=== PATIENT | female | born 1980 | race Caucasian/White ===

== ENCOUNTER 2017-09-14 13:56 | Emergency (ER) | payer MEDICAID ==
[2017-09-14 14:06] VITALS: BP 127/65
[2017-09-14] MEDS ORDERED: KETOROLAC TROMETHAMINE INJ/PF 30 MG/1 ML SDV IM ONE (14:32)
--- NOTE | 2017-09-14 14:39 | ER Document Report ---
ED Extremity Problem, Lower - General Chief Complaint: Leg Pain Stated Complaint: RIGHT LEG PAIN Time Seen by Provider: 09/14/17 14:15 Mode of Arrival: Ambulatory Information source: Patient TRAVEL OUTSIDE OF THE [place] IN LAST 30 DAYS: No - HPI Patient complains to provider of: Pain Location: Leg Occurred: Yesterday Notes: Patient is here with complaints of right leg pain. She states the pain started yesterday afternoon. She denies any fall, trauma, injury. She does report that she was pulling trash cans and weeds the day before and is not sure if she injured something doing that. She denies any blood thinning medications. She denies any fever. No abdominal pain. No nausea, vomiting, diarrhea. No dysuria hematuria. No rash. Pain is worse when she completely straightens out her leg or when she walks. Nothing seems to make it feel better. She denies any recent long trips or surgeries, leg swelling, cancer, hormone use, history of DVT or PE. She denies any numbness, tingling, weakness. She denies any bowel or bladder dysfunction. No chest pain or shortness of breath. She has no other complaints at this time. - Related Data Allergies/Adverse Reactions: Soap [From Betadine] Allergy (Severe, Verified 09/14/17 13:57) rash,hives povidone-iodine [From Betadine] Allergy (Verified 09/14/17 13:57) diphenhydramine HCl [From Benadryl] Adverse Reaction (Verified 09/14/17 13:57) EXTREME DROWSINESS Past Medical History - Social History Smoking Status: Current Every Day Smoker Chew tobacco use (# tins/day): No Frequency of alcohol use: None Drug Abuse: None Family History: Reviewed & Not Pertinent Patient has suicidal ideation: No Patient has homicidal ideation: No - Past Medical History Cardiac Medical History: Denies: Hx Heart Attack, Hx Hypertension, Hx Pulmonary Embolism Pulmonary Medical History: Reports: Hx Asthma - no recent attacks Denies: Hx Bronchitis, Hx COPD, Hx Pneumonia, Hx Respiratory Failure, Hx Sleep Apnea, Hx Tuberculosis Neurological Medical History: Denies: Hx Cerebrovascular Accident, Hx Seizures Renal/ Medical History: Denies: Hx Ovarian Cysts, Hx Peritoneal Dialysis, Hx Pelvic Inflammatory Disease Malignancy Medical History: Denies: Hx Breast Cancer, Hx Cervical Cancer, Hx Lung Cancer, Hx Ovarian Cancer GI Medical History: Reports: Hx Gastroesophageal Reflux Disease. Denies: Hx Crohn's Disease, Hx Hepatitis, Hx Hiatal Hernia, Hx Irritable Bowel, Hx Liver Failure, Hx Pancreatitis, Hx Ulcer Psychiatric Medical History: Reports: Hx Anxiety, Hx Bipolar Disorder, Hx Depression Denies: Hx Post Traumatic Stress Disorder, Hx Schizophrenia Traumatic Medical History: Denies: Hx Fractures, Hx Spine Fracture Infectious Medical History: Denies: Hx C-Diff, Hx Hepatitis, Hx HIV, Hx MRSA, Hx VRE Past Surgical History: Reports: Hx Appendectomy, Hx Tonsillectomy, Hx Tubal Ligation. Denies: Hx Bowel Surgery, Hx Section, Hx Cholecystectomy, Hx Colostomy, Hx Coronary Artery Bypass Graft, Hx Gastric Bypass Surgery, Hx Herniorrhaphy, Hx Hysterectomy, Hx Mastectomy, Hx Open Heart Surgery, Hx Pacemaker - Immunizations Immunizations up to date: Yes Hx Diphtheria, Pertussis, Tetanus Vaccination: Yes Review of Systems - Review of Systems -: Yes All other systems reviewed and negative Physical Exam - Vital signs Vitals: Temp Pulse Resp BP Pulse Ox 98.8 F 82 20 127/65 H 99 09/14/17 14:03 09/14/17 14:03 09/14/17 14:03 09/14/17 14:03 09/14/17 14:03 - Notes Notes: GENERAL: alert, cooperative, nontoxic, no distress. HEAD: normocephalic, atraumatic EYES: conjunctiva pink without discharge, no external redness or swelling. EARS: no external swelling, no external redness NOSE: atraumatic, no external swelling MOUTH/THROAT: mucous membranes moist and pink, posterior pharynx without erythema, swelling, exudate. No trismus or drooling. NECK: soft, supple, full range of motion, no meningismus. CHEST: no distress, lungs clear and equal throughout. No wheezing, rales, rhonchi. CARDIAC: regular rate and rhythm, no murmur, normal capillary refill, normal pulses. No peripheral edema noted. ABDOMEN: soft, nontender, no pusatile mass. BACK: No CVA tenderness. Tenderness to the right gluteus clayton as well as sciatic notch. Full range of motion of the back. No rash. EXTREMITIES: full range of motion of all extremities. No redness, no swelling. NEURO: alert and oriented A&O x 3, no focal deficits, full range of motion of all extremities. 5 out of 5 flexion and extension of the lower extremities bilaterally. Patellar and Achilles deep tendon reflexes are +2 bilaterally. Normal sensation with no saddle anesthesia. Patient can dorsiflex the great toes bilaterally. PYSCH: appropriate mood, affect. Patient is cooperative. SKIN: pink, warm, dry, no rash. Course - Re-evaluation Re-evalutation: 09/14/17 14:36 Patient is nontoxic-appearing with stable vitals. She is here with complaints of right buttock and right leg pain. There was no trauma or injury. There is no numbness or tingling. She is on no blood thinning medications. She has no risk or signs of cauda equina, epidural abscess/bleed, discitis, osteomyelitis, pyelonephritis, AAA. Patient has no DVT risk factors. She has no leg redness, swelling. She has normal pulse and sensation. Reflexes and neurological exam are unremarkable. Patient most likely is experiencing some sciatica. With lack of trauma, no imaging is needed at this time. At this point the patient will be given a shot of Toradol will be discharged home with Voltaren and instructions to follow-up if she is not improving in the next week. She should follow-up sooner for worsening pain, fever, numbness, tingling, weakness, bowel or bladder dysfunction, chest pain, shortness of breath, abdominal pain, or for any further concerns. The patient is noted to have elevated blood pressure during today's emergency department visit. The patient was informed of this finding. The patient was instructed that this may be related to pre-hypertension and requires further evaluation with a primary care provider. The patient has no hypertensive symptoms at this time. The patient's emergency department workup and current diagnosis were explained to the patient and or family. Follow-up instructions were provided. Medications if prescribed were discussed. Instructions for when to return to the emergency department including specific worrisome symptoms were discussed with the patient and/or family. - Vital Signs Vital signs: Temp Pulse Resp BP Pulse Ox 98.8 F 82 20 127/65 H 99 09/14/17 14:03 09/14/17 14:03 09/14/17 14:03 09/14/17 14:03 09/14/17 14:03 Discharge - Discharge Clinical Impression: Sciatica Qualifiers: Laterality: right Qualified Code(s): M54.31 - Sciatica, right side Condition: Stable Disposition: HOME, SELF-CARE Instructions: Sciatica ([facility]), Family Physicians / Practices Additional Instructions: Take medication as prescribed. Stretch. Follow-up with your doctor if not better in 1 week, sooner for worsening pain, fever, abdominal pain, nausea, vomiting, diarrhea, numbness, tingling, weakness, bowel or bladder dysfunction, swelling of the leg, or for any further concerns. Your blood pressure was elevated during today's visit. Have this rechecked with your doctor. Prescriptions: Diclofenac Sodium [Voltaren 50 Mg Tablet.] 50 mg PO BID #20 tablet.dr Forms: Elevated Blood Pressure, Smoking Cessation Education Referrals: ALVA DALTON MD [Primary Care Provider] - Follow up as needed
== END 2017-09-14 14:44 | disposition home or self-care (01) ==
LOC: ER 13:56
DX: M54.31 Sciatica, right side (principal); R03.0 Elevated blood-pressure reading, without diagnosis of hypertension; F17.200 Nicotine dependence, unspecified, uncomplicated; Z88.3 Allergy status to other anti-infective agents
CPT/HCPCS: 99283; 96372; J1885

== ENCOUNTER 2018-06-06 15:38 | Emergency (ER) | payer MEDICAID ==
[2018-06-06] MEDS ORDERED: CEPHALEXIN 500 MG CAPSULE PO ONE (16:44)
[2018-06-06] MEDS ORDERED: OXYCODONE-ACETAMINOPHEN 5-325 MG TABLET PO ONE (16:44)
[2018-06-06] MEDS ORDERED: SULFAMETHOXAZOLE/TRIMETHOPRIM 800-160 MG TABLET PO ONE (16:44)
[2018-06-06] MEDS ORDERED: BUPIVACAINE HCL 0.25% /EPINEPHRINE INJ/PF 30 ML SDV INJ ONE (16:45)
[2018-06-06] MEDS ORDERED: LIDOCAINE 1% INJ (10 MG/ML) 10 ML MDV INJ ONE (16:45)
--- NOTE | 2018-06-06 16:47 | ER Document Report ---
ED Medical Screen (RME) - General Chief Complaint: Toe Injury Stated Complaint: TOE PAIN Time Seen by Provider: 06/06/18 16:28 Primary Care Provider: AMINAH ESPINAL MD [Primary Care Provider] - Follow up as needed Notes: Patient is a 38-year-old female that presents to the emergency department for chief complaint of left great toe pain. Patient had a left great toenail removed approximately 2 and half weeks ago, and over the past 2 days, she noticed some green discharge and redness, and severe pain to the point that she decided come to the emergency department, she did see a strategic account director for this initially, but they are out of the office and not able to be seen today.. ROS: Other than noted above, the 12 point review of systems was reviewed with the patient and were negative, all pertinent findings are included in the HPI. PHYSICAL EXAMINATION: Vital signs reviewed. GENERAL: Obese female, appears uncomfortable on exam HEAD: Atraumatic, normocephalic. EYES: Pupils equal round extraocular movements intact, conjunctiva are normal. ENT: Nares patent NECK: Normal range of motion CV: Heart regular rate and rhythm LUNGS: No respiratory distress Musculoskeletal: Left great toe, has purulent discharge over the nailbed, tenderness to palpate, mild erythema noted NEUROLOGICAL: Normal speech PSYCH: Normal mood, normal affect. MDM: Patient seen and examined for rapid initial assessment. Vital signs reviewed. A comprehensive ED assessment and evaluation of the patient, analysis of test results and completion of the medical decision making process will be conducted by additional ED providers. *Note is created using voice recognition software and may contain spelling, syntax or grammatical errors. TRAVEL OUTSIDE OF THE [place] IN LAST 30 DAYS: No - Related Data Allergies/Adverse Reactions: Soap [From Betadine] Allergy (Severe, Verified 06/06/18 15:42) rash,hives povidone-iodine [From Betadine] Allergy (Verified 06/06/18 15:42) diphenhydramine HCl [From Benadryl] Adverse Reaction (Verified 06/06/18 15:42) EXTREME DROWSINESS Past Medical History - Social History Chew tobacco use (# tins/day): No Frequency of alcohol use: None Drug Abuse: None - Past Medical History Cardiac Medical History: Denies: Hx Heart Attack, Hx Hypertension, Hx Pulmonary Embolism Pulmonary Medical History: Reports: Hx Asthma - no recent attacks Denies: Hx Bronchitis, Hx COPD, Hx Pneumonia, Hx Respiratory Failure, Hx Sleep Apnea, Hx Tuberculosis Neurological Medical History: Denies: Hx Cerebrovascular Accident, Hx Seizures Renal/ Medical History: Reports: Hx Peritoneal Dialysis. Denies: Hx Ovarian Cysts, Hx Pelvic Inflammatory Disease Malignancy Medical History: Denies: Hx Breast Cancer, Hx Cervical Cancer, Hx Lung Cancer, Hx Ovarian Cancer GI Medical History: Reports: Hx Gastroesophageal Reflux Disease. Denies: Hx Crohn's Disease, Hx Hepatitis, Hx Hiatal Hernia, Hx Irritable Bowel, Hx Liver Failure, Hx Pancreatitis, Hx Ulcer Psychiatric Medical History: Reports: Hx Anxiety, Hx Bipolar Disorder, Hx Dep ression Denies: Hx Post Traumatic Stress Disorder, Hx Schizophrenia Traumatic Medical History: Denies: Hx Fractures, Hx Spine Fracture Infectious Medical History: Denies: Hx C-Diff, Hx Hepatitis, Hx HIV, Hx MRSA, Hx VRE Past Surgical History: Reports: Hx Appendectomy, Hx Tonsillectomy, Hx Tubal Ligation. Denies: Hx Bowel Surgery, Hx Section, Hx Cholecystectomy, Hx Colostomy, Hx Coronary Artery Bypass Graft, Hx Gastric Bypass Surgery, Hx Herniorrhaphy, Hx Hysterectomy, Hx Mastectomy, Hx Open Heart Surgery, Hx Pacemaker - Immunizations Immunizations up to date: Yes Hx Diphtheria, Pertussis, Tetanus Vaccination: Yes Physical Exam - Vital signs Vitals: Temp Pulse Resp BP Pulse Ox 99.0 F 96 18 144/90 H 98 06/06/18 15:43 06/06/18 15:43 06/06/18 15:43 06/06/18 15:43 06/06/18 15:43 Course - Vital Signs Vital signs: Temp Pulse Resp BP Pulse Ox 99.0 F 96 18 144/90 H 98 06/06/18 15:43 06/06/18 15:43 06/06/18 15:43 06/06/18 15:43 06/06/18 15:43 Doctor's Discharge - Discharge Referrals: AMINAH ESPINAL MD [Primary Care Provider] - Follow up as needed
--- NOTE | 2018-06-06 18:11 | RADIOLOGY REPORT (SQ) ---
EXAM DESCRIPTION: TOE LEFT COMPLETED DATE/TIME: 06/06/2018 5:17 pm REASON FOR STUDY: left great toe pain, infection COMPARISON: None. NUMBER OF VIEWS: Three views. TECHNIQUE: AP, lateral, and oblique images acquired of the left first toe. LIMITATIONS: None. FINDINGS: MINERALIZATION: Normal. BONES: No acute fracture or dislocation. Prior bunionectomy. JOINTS: No effusions. SOFT TISSUES: No soft tissue swelling. No foreign body. OTHER: No other significant finding. IMPRESSION: NEGATIVE STUDY OF THE LEFT TOE. NO RADIOGRAPHIC EVIDENCE OF ACUTE INJURY. COMMENT: SITE OF TRAUMA/COMPLAINT MARKED/STAMP COMPLETED: No TECHNICAL DOCUMENTATION: JOB ID: [id number] [employer]- All Rights Reserved Reading location - IP/workstation name: [email or web address]
--- NOTE | 2018-06-06 18:47 | ER Document Report ---
HPI - HPI Patient complains to provider of: Infected toe Time Seen by Provider: 06/06/18 16:28 Onset: Other - 2 days Onset/Duration: Worse Quality of pain: Achy Pain Level: 5 Context: Patient states she had her left great toenail removed 2-1/2 weeks ago due to problems with recurrent infections. Patient states she developed increased pain swelling and drainage to the toe of the past 2 days. Patient denies any fever. Patient states she was supposed to see the network internship today but they had to reschedule her appointment. Associated Symptoms: Other - Left great toe pain. denies: Fever Exacerbated by: Movement, Walking Relieved by: Denies Similar symptoms previously: Yes Recently seen / treated by doctor: Yes - ROS ROS below otherwise negative: Yes Systems Reviewed and Negative: Yes All other systems reviewed and negative - CONSTITUTIONAL Constitutional: REPORTS: Chills. DENIES: Fever - REPRODUCTIVE Reproductive: DENIES: : - MUSCULOSKELETAL Musculoskeletal: REPORTS: Extremity pain, Swelling - DERM Skin Color: Normal, [place] Past Medical History - General Information source: Patient - Social History Smoking Status: Current Every Day Smoker Chew tobacco use (# tins/day): No Smoking Education Provided: Yes Frequency of alcohol use: None Drug Abuse: None Occupation: None Lives with: Family Family History: Reviewed & Not Pertinent Patient has suicidal ideation: No Patient has homicidal ideation: No Pulmonary Medical History: Reports: Hx Asthma - no recent attacks Renal/ Medical History: Reports: Hx Peritoneal Dialysis GI Medical History: Reports: Hx Gastroesophageal Reflux Disease Psychiatric Medical History: Reports: Hx Anxiety, Hx Bipolar Disorder, Hx Depression Past Surgical History: Reports: Hx Appendectomy, Hx Tonsillectomy, Hx Tubal Ligation - Immunizations Immunizations up to date: Yes Hx Diphtheria, Pertussis, Tetanus Vaccination: Yes Vertical Provider Document - CONSTITUTIONAL Agree With Documented VS: Yes Exam Limitations: No Limitations General Appearance: WD/WN, No Apparent Distress - INFECTION CONTROL TRAVEL OUTSIDE OF THE [place] IN LAST 30 DAYS: No - HEENT HEENT: Atraumatic, Normocephalic - NECK Neck: Normal Inspection - RESPIRATORY Respiratory: Breath Sounds Normal, No Respiratory Distress - CARDIOVASCULAR Cardiovascular: Regular Rate, Regular Rhythm Pulses: Normal: Dorsalis pedis - MUSCULOSKELETAL/EXTREMETIES Musculoskeletal/Extremeties: MAEW - NEURO Level of Consciousness: Awake, Alert, Appropriate Motor/Sensory: No Motor Deficit - DERM Integumentary: Warm, Dry Notes: Patient with yellow-green drainage to nail bed of left great toe, mild erythema noted around nail bed, no significant swelling appreciated. Course - Re-evaluation Re-evalutation: 06/06/18 18:47 Offered patient digital block that was ordered from triage, patient declined stating that as long as she can be given something to go home with she can do without the block at this time. - Vital Signs Vital signs: Temp Pulse Resp BP Pulse Ox 99.0 F 96 18 144/90 H 98 06/06/18 15:43 06/06/18 15:43 06/06/18 15:43 06/06/18 15:43 06/06/18 15:43 Discharge - Discharge Clinical Impression: Impetigo, Paronychia of toe of left foot Condition: Stable Disposition: HOME, SELF-CARE Instructions: Bactroban Ointment ([facility]), Cephalexin ([facility]), Impetigo ([facility]), Paronychia ([facility]), Trimethoprim-Sulfa ([facility]) Additional Instructions: Return immediately for any new or worsening symptoms Followup with your primary care provider, call tomorrow to make a followup appointment Keep wound covered as it continues to heal, dressed nail bed with Bactroban ointment and then use a nonadherent dressing Do not take the Percocet if you take your Xanax, only take one medication of the other to avoid any adverse interaction between the 2 medications Prescriptions: Cephalexin Monohydrate [Keflex 500 mg Capsule] 500 mg PO Q6H 5 Days capsule Oxycodone HCl/Acetaminophen [Percocet 5-325 mg Tablet] 1 tab PO ASDIR PRN #8 tablet PRN Reason: Sulfamethoxazole/Trimethoprim [Bactrim Ds Tablet] 1 each PO BID #20 tablet Forms: Smoking Cessation Education Referrals: AMINAH ESPINAL MD [Primary Care Provider] - Follow up as needed
[2018-06-06] MEDS ORDERED: MUPIROCIN CALCIUM 2% CREAM 15 GM TP ONE (19:08)
[2018-06-06 19:40] VITALS: BP 140/83
== END 2018-06-06 19:36 | disposition home or self-care (01) ==
LOC: ER 15:38
DX: L01.00 Impetigo, unspecified (principal); L03.042 Acute lymphangitis of left toe; F17.200 Nicotine dependence, unspecified, uncomplicated; Z98.51 Tubal ligation status
CPT/HCPCS: 99283; 87070; 87205; 73660; J3490 ×2

== ENCOUNTER 2018-08-19 14:10 | Emergency (ER) | payer MEDICAID ==
--- NOTE | 2018-08-19 15:43 | ER Document Report ---
ED Medical Screen (RME) - General Chief Complaint: Abdominal Pain Stated Complaint: ABDOMINAL PAIN Time Seen by Provider: 08/19/18 15:39 Primary Care Provider: AMINAH ESPINAL MD [Primary Care Provider] - Follow up as needed Mode of Arrival: Ambulatory Information source: Patient Notes: 38-year-old female presented to ED for right lower abdominal pain since 2 AM. She states she has had her appendix out many years ago. She states she is also had a hysterectomy and has one ovary left. She states she is not sure which ovary but all of her pain is actually in the right pelvic area. She has severe pain to palpation in the right pelvic area. Abdomen soft non-tender except in the right pelvic area bowel sounds are hyperactive. She states she is not having any change in bowel or bladder. She states she is having bowel movements and urinating with no difficulty. She states she went to the [facility] and they sent her to the ED because they could not do any kind of imaging. She states she does smoke half pack a day does not drink or do drugs or work. She lives with her family I have greeted and performed a rapid initial assessment of this patient. A comprehensive ED assessment and evaluation of the patient, analysis of test results and completion of medical decision making process will be conducted by an additional ED providers. TRAVEL OUTSIDE OF THE [place] IN LAST 30 DAYS: No - Related Data Allergies/Adverse Reactions: Soap [From Betadine] Allergy (Severe, Verified 06/06/18 15:42) rash,hives povidone-iodine [From Betadine] Allergy (Verified 06/06/18 15:42) diphenhydramine HCl [From Benadryl] Adverse Reaction (Verified 06/06/18 15:42) EXTREME DROWSINESS Past Medical History - Past Medical History Cardiac Medical History: Denies: Hx Heart Attack, Hx Hypertension, Hx Pulmonary Embolism Pulmonary Medical History: Reports: Hx Asthma - no recent attacks Denies: Hx Bronchitis, Hx COPD, Hx Pneumonia, Hx Respiratory Failure, Hx Sleep Apnea, Hx Tuberculosis Neurological Medical History: Denies: Hx Cerebrovascular Accident, Hx Seizures Renal/ Medical History: Denies: Hx Ovarian Cysts, Hx Peritoneal Dialysis, Hx Pelvic Inflammatory Disease Malignancy Medical History: Denies: Hx Breast Cancer, Hx Cervical Cancer, Hx Lung Cancer, Hx Ovarian Cancer GI Medical History: Reports: Hx Gastroesophageal Reflux Disease. Denies: Hx Crohn's Disease, Hx Hepatitis, Hx Hiatal Hernia, Hx Irritable Bowel, Hx Liver Failure, Hx Pancreatitis, Hx Ulcer Psychiatric Medical History: Reports: Hx Anxiety, Hx Bipolar Disorder, Hx Depression Denies: Hx Post Traumatic Stress Disorder, Hx Schizophrenia Traumatic Medical History: Denies: Hx Fractures, Hx Spine Fracture Infectious Medical History: Denies: Hx C-Diff, Hx Hepatitis, Hx HIV, Hx MRSA, Hx VRE Past Surgical History: Reports: Hx Appendectomy, Hx Hysterectomy, Hx Orthopedic Surgery, Hx Tonsillectomy, Hx Tubal Ligation. Denies: Hx Bowel Surgery, Hx Section, Hx Cholecystectomy, Hx Colostomy, Hx Coronary Artery Bypass Graft, Hx Gastric Bypass Surgery, Hx Herniorrhaphy, Hx Mastectomy, Hx Open Heart Surgery, Hx Pacemaker - Immunizations Immunizations up to date: Yes Hx Diphtheria, Pertussis, Tetanus Vaccination: Yes Physical Exam - Vital signs Vitals: Temp Pulse Resp BP Pulse Ox 98.2 F 89 14 132/73 H 97 08/19/18 15:09 08/19/18 15:09 08/19/18 15:09 08/19/18 15:09 08/19/18 15:09 Course - Vital Signs Vital signs: Temp Pulse Resp BP Pulse Ox 98.2 F 89 14 132/73 H 97 08/19/18 15:09 08/19/18 15:09 08/19/18 15:09 08/19/18 15:09 08/19/18 15:09 Doctor's Discharge - Discharge Referrals: AMINAH ESPINAL MD [Primary Care Provider] - Follow up as needed
[2018-08-19 16:27] LABS: APPEARANCE,URINE SLIGHTLY-CLOUDY; BILIRUBIN,URINE NEGATIVE (NEGATIVE); COLOR,URINE YELLOW; GLUCOSE, URINE NEGATIVE (NEGATIVE); KETONES,URINE NEGATIVE (NEGATIVE); LEUKOCYTE ESTERASE,URINE LARGE (NEGATIVE); NITRITE,URINE NEGATIVE (NEGATIVE); PROTEIN,URINE NEGATIVE (NEGATIVE); URINE SPECIFIC GRAVITY 1.011; UROBILINOGEN,URINE NEGATIVE mg/dL (<2.0)
[2018-08-19 17:55] LABS: ABSOLUTE BASOPHILS # (AUTO) 0.1 10^3/uL (0.0-0.2); ABSOLUTE EOSINOPHILS # (AUTO) 0.2 10^3/uL (0.0-0.6); ABSOLUTE LYMPHOCYTES (AUTO) 3.6 10^3/uL (0.5-4.7); ABSOLUTE MONOCYTES (AUTO) 0.8 10^3/uL (0.1-1.4); ABSOLUTE NEUT (AUTO) 10.4 10^3/uL (1.7-8.2); BASOPHILS % (AUTO) 0.7 % (0-2); EOSINOPHILS % (AUTO) 1.5 % (0-6); HEMATOCRIT 43.8 % (36.0-47.0); HEMOGLOBIN 14.4 g/dL (12.0-15.5); LYMPHOCYTES % (AUTO) 23.6 % (13-45); MEAN CORPUSCULAR HEMOGLOBIN 29.4 pg (27.0-33.4); MEAN CORPUSCULAR HGB CONC 32.9 g/dL (32.0-36.0); MEAN CORPUSCULAR VOLUME 89 fl (80-97); MONOCYTES % (AUTO) 5.5 % (3-13); PLATELET COUNT 303 10^3/uL (150-450); RED CELL DISTRIBUTION WIDTH 13.2 % (11.5-14.0); SEGMENTED NEUTROPHILS % (AUTO) 68.7 % (42-78); TOTAL CELLS COUNTED % (AUTO) 100 %; WHITE BLOOD COUNT 15.2 10^3/uL (4.0-10.5)
[2018-08-19 18:18] LABS: ALANINE AMINOTRANSFERASE 19 U/L (9-52); ALBUMIN 4.1 g/dL (3.5-5.0); ALKALINE PHOSPHATASE 72 U/L (38-126); ANION GAP 11 (5-19); ASPARTATE AMINO TRANSFERASE 15 U/L (14-36); BILIRUBIN,DIRECT 0.3 mg/dL (0.0-0.4); BILIRUBIN,TOTAL 0.6 mg/dL (0.2-1.3); BLOOD UREA NITROGEN 11 mg/dL (7-20); CALCIUM 9.5 mg/dL (8.4-10.2); CARBON DIOXIDE 25 mmol/L (22-30); CHLORIDE 107 mmol/L (98-107); GLUCOSE 119 mg/dL (75-110); POTASSIUM 4.5 mmol/L (3.6-5.0); SODIUM 143.1 mmol/L (137-145); TOTAL PROTEIN 7.6 g/dL (6.3-8.2)
--- NOTE | 2018-08-19 18:28 | RADIOLOGY REPORT (SQ) ---
EXAM DESCRIPTION: U/S NON OB PEL TV W/DOPPLER COMPLETED DATE/TIME: 08/19/2018 6:19 pm REASON FOR STUDY: right pelvic pain has right ovary, appendectomy COMPARISON: None. TECHNIQUE: Dynamic and static grayscale images acquired of the pelvis via transvaginal approach and recorded on PACS. Additional selected color Doppler and spectral images recorded. LIMITATIONS: None. FINDINGS: UTERUS: Surgically absent. ENDOMETRIAL STRIPE: Surgically absent. CERVIX: Not visualized. RIGHT OVARY AND DOPPLER: Normal size. 2.5 cm simple appearing cyst. No worrisome masses. Normal art erial vascular flow without evidence for torsion. LEFT OVARY AND DOPPLER: Normal size. Dominant follicle or small cyst 1.8 cm. No worrisome masses. N ormal arterial vascular flow without evidence for torsion. FREE FLUID: None noted. OTHER: No other significant finding. IMPRESSION: Simple appearing cyst right ovary. No evidence of torsion. TECHNICAL DOCUMENTATION: JOB ID: [id number] [employer]- All Rights Reserved Rev Reading location - IP/workstation name: [email or web address]
[2018-08-19] MEDS ORDERED: KETOROLAC TROMETHAMINE INJ/PF 30 MG/1 ML SDV IV ONE (19:12)
--- NOTE | 2018-08-19 19:29 | ER Document Report ---
ED General - General Chief Complaint: Abdominal Pain Stated Complaint: ABDOMINAL PAIN Time Seen by Provider: 08/19/18 15:39 Primary Care Provider: AMINAH ESPINAL MD [Primary Care Provider] - Follow up as needed Mode of Arrival: Ambulatory TRAVEL OUTSIDE OF THE [place] IN LAST 30 DAYS: No - HPI Notes: Patient is a 38-year-old female presents to the emergency department for evaluation of pain in her right lower abdomen. It woke her from her sleep at 2 AM this morning. It is a sharp and stabbing pain. She states that she has intermittent sharp stabs of pain, and a constant dull and aching pain with it. She denies any fevers or chills. No nausea or vomiting. She is status post hysterectomy. She denies any vaginal discharge. She denies any dysuria, hematuria, or urinary frequency. Normal bowel movements. Normal appetite. - Related Data Allergies/Adverse Reactions: Soap [From Betadine] Allergy (Severe, Verified 06/06/18 15:42) rash,hives povidone-iodine [From Betadine] Allergy (Verified 06/06/18 15:42) diphenhydramine HCl [From Benadryl] Adverse Reaction (Verified 06/06/18 15:42) EXTREME DROWSINESS Past Medical History - General Information source: Patient - Social History Smoking Status: Current Every Day Smoker Family History: Reviewed & Not Pertinent Patient has suicidal ideation: No Patient has homicidal ideation: No - Past Medical History Cardiac Medical History: Denies: Hx Heart Attack, Hx Hypertension, Hx Pulmonary Embolism Pulmonary Medical History: Reports: Hx Asthma - no recent attacks Denies: Hx Bronchitis, Hx COPD, Hx Pneumonia, Hx Respiratory Failure, Hx Sleep Apnea, Hx Tuberculosis Neurological Medical History: Denies: Hx Cerebrovascular Accident, Hx Seizures Renal/ Medical History: Denies: Hx Ovarian Cysts, Hx Peritoneal Dialysis, Hx Pelvic Inflammatory Disease Malignancy Medical History: Denies: Hx Breast Cancer, Hx Cervical Cancer, Hx Lung Cancer, Hx Ovarian Cancer GI Medical History: Reports: Hx Gastroesophageal Reflux Disease. Denies: Hx Crohn's Disease, Hx Hepatitis, Hx Hiatal Hernia, Hx Irritable Bowel, Hx Liver Failure, Hx Pancreatitis, Hx Ulcer Psychiatric Medical History: Reports: Hx Anxiety, Hx Bipolar Disorder, Hx Depression Denies: Hx Post Traumatic Stress Disorder, Hx Schizophrenia Traumatic Medical History: Denies: Hx Fractures, Hx Spine Fracture Infectious Medical History: Denies: Hx C-Diff, Hx Hepatitis, Hx HIV, Hx MRSA, Hx VRE Past Surgical History: Reports: Hx Appendectomy, Hx Hysterectomy, Hx Orthopedic Surgery, Hx Tonsillectomy, Hx Tubal Ligation. Denies: Hx Bowel Surgery, Hx Section, Hx Cholecystectomy, Hx Colostomy, Hx Coronary Artery Bypass Graft, Hx Gastric Bypass Surgery, Hx Herniorrhaphy, Hx Mastectomy, Hx Open Heart Surgery, Hx Pacemaker - Immunizations Immunizations up to date: Yes Hx Diphtheria, Pertussis, Tetanus Vaccination: Yes Review of Systems - Review of Systems Constitutional: No symptoms reported EENT: No symptoms reported Cardiovascular: No symptoms reported Respiratory: No symptoms reported Gastrointestinal: See HPI Genitourinary: No symptoms reported Female Genitourinary: No symptoms reported Musculoskeletal: No symptoms reported Skin: No symptoms reported Neurological/Psychological: No symptoms reported Physical Exam - Vital signs Vitals: Temp Pulse Resp BP Pulse Ox 98.2 F 89 14 132/73 H 97 08/19/18 15:08/19/18 15:08/19/18 15:09 08/19/18 15:08/19/18 15:09 - Notes Notes: Vital signs reviewed, please refer to chart. Head is normocephalic, atraumatic. Pupils equal round, reactive to light. Neck is supple without meningismus. Heart is regular rate and rhythm. Lungs are clear to auscultation bilaterally. Abdomen is soft, mild right pelvic tenderness without rebound or guarding, normoactive bowel sounds throughout. Extremities without cyanosis, clubbing. Posterior calves are nontender. Peripheral pulses are equal. Skin is warm and dry. Patient is awake, alert, neurological exam is nonfocal. Course - Re-evaluation Re-evalutation: 08/19/18 19:25 Patient presents to the emergency department for evaluation. She had initial orders from triage. Laboratory visitations were remarkable for a mild leukocytosis. Imaging did reveal a 2 and half centimeter right ovarian cyst. No signs of torsion. Patient was medicated here with Toradol. I will get and send her with prescription strength anti-inflammatories. She does have a family practice physician with which she follows. Despite being simple appearing, I did recommend that she have a repeat ultrasound in 6 weeks to 3 months to evaluate for clearing. She voiced understanding to this. She is to return to the ED with worsening or new concerning symptoms of any sort. - Vital Signs Vital signs: Temp Pulse Resp BP Pulse Ox 98.2 F 89 14 132/73 H 97 08/19/18 15:09 08/19/18 15:09 08/19/18 15:09 08/19/18 15:09 08/19/18 15:09 - Laboratory Result Diagrams: 08/19/18 17:35 08/19/18 17:35 Laboratory results interpreted by me: 08/19/18 08/19/18 08/19/18 15:40 17:35 17:35 WBC 15.2 H Absolute Neutrophils 10.4 H Glucose 119 H Ur Leukocyte Esterase LARGE H Discharge - Discharge Clinical Impression: Right ovarian cyst Condition: Stable Disposition: HOME, SELF-CARE Instructions: Ovarian Cyst ([facility]) Additional Instructions: Have a repeat ultrasound in 6 weeks to 3 months for further evaluation. Take medications as prescribed, with food. Follow-up with primary care next week. Return to the emergency department with worsening or new concerning symptoms of any sort. Referrals: AMINAH ESPINAL MD [Primary Care Provider] - Follow up as needed
[2018-08-19 19:40] VITALS: BP 130/70
== END 2018-08-19 19:40 | disposition home or self-care (01) ==
LOC: ER 14:10
DX: N83.201 Unspecified ovarian cyst, right side (principal); R10.31 Right lower quadrant pain; F17.200 Nicotine dependence, unspecified, uncomplicated; Z90.710 Acquired absence of both cervix and uterus
CPT/HCPCS: 99284; 96374; 36415; 85025; 80053; 81001; 76830; 93976; J1885